=== PATIENT | female | born 1995 | race Caucasian/White ===

== ENCOUNTER 2021-03-17 11:39 | Emergency (ER) | payer BC, MEDICAID ==
[~2021-03-17] VITALS: Ht 160 cm; Wt 74.4 kg
[~2021-03-17 11:39] MED LIST: ALBU0.0939; ESCI5TAB; QUET25TA
[2021-03-17 11:42] VITALS: BP 157/80
--- NOTE | 2021-03-17 12:20 | NUR ---
26yo f, 31 weeks AOG, c/o right wrist pain s/p hitting lateral aspect on steering wheel yesterday. pain 5/10, dull, (+)tingling, (-)numbness. no meds taken. pt is still able to move her fingers/wrist at this time. cap refill <2 seconds. pmh: none meds: none allergy: amoxicillin
[2021-03-17] MEDS ORDERED: ACETAMINOPHEN EXTRA STRENGTH 500 MG TAB PO ONE (12:25)
--- NOTE | 2021-03-17 12:26 | NUR ---
HEALTH IT SPECIALIST AT PT BEDSIDE.
--- NOTE | 2021-03-17 12:27 | NUR ---
xray at patient bedside
[2021-03-17] MEDS ORDERED: ACET-10509 PO (12:53)
[2021-03-17 13:06] VITALS: BP 157/80
== END 2021-03-17 13:07 | disposition home or self-care (01) ==
LOC: MED 11:39
DX: O9A.213 Injury, poisoning and certain other consequences of external causes complicating pregnancy, third trimester (principal); S60.211A Contusion of right wrist, initial encounter; O99.513 Diseases of the respiratory system complicating pregnancy, third trimester; J45.909 Unspecified asthma, uncomplicated; Z3A.31 31 weeks gestation of pregnancy; Z79.899 Other long term (current) drug therapy; Z79.51 Long term (current) use of inhaled steroids; Z88.0 Allergy status to penicillin; X58.XXXA Exposure to other specified factors, initial encounter; Y92.89 Other specified places as the place of occurrence of the external cause; Y93.89 Activity, other specified; Y99.8 Other external cause status
CPT/HCPCS: 73110; 99283

== ENCOUNTER 2021-07-26 16:44 | Emergency (ER) | payer MEDICAID ==
[~2021-07-26] VITALS: Ht 160 cm; Wt 82.6 kg
[~2021-07-26 16:44] MED LIST changes: +ACET-10509 PO
[2021-07-26 16:57] VITALS: BP 158/83
[2021-07-26 18:54] LABS: BASOPHILS % (AUTO) 0.2 % (0.0-2.0); EOSINOPHILS % (AUTO) 0.3 % (0.0-4.0); HEMATOCRIT 41.3 % (36-48); HEMOGLOBIN 13.6 g/dL (12.0-16.0); LYMPHOCYTES # (AUTO) 0.5 K/uL (2.5-16.5); LYMPHOCYTES % (AUTO) 5.6 % (20.5-51.1); MEAN CORPUSCULAR HEMOGLOBIN 26 pg (27-31); MEAN CORPUSCULAR HGB CONC 33 g/dL (33-37); MEAN CORPUSCULAR VOLUME 77.5 fL (80-94); MONOCYTES # (AUTO) 0.4 K/uL (0.8-1.0); MONOCYTES % (AUTO) 5.1 % (1.7-9.3); NEUTROPHILS # (AUTO) 7.7 K/uL (1.8-7.7); NEUTROPHILS % (AUTO) 88.8 % (42.2-75.2); PLATELET COUNT (AUTO) 279 K/uL (140-450); RED BLOOD CELL COUNT(AUTO) 5.32 MIL/uL (4.20-5.40); RED CELL DISTRIBUTION WIDTH 21.2 % (11.6-13.7); WHITE BLOOD COUNT (AUTO) 8.7 K/uL (4.8-10.8)
[2021-07-26] MEDS: ONDANSETRON 4 MG ODT PO ONE (19:16)
[2021-07-26 19:17] LABS: ALBUMIN 3.7 g/dL (3.4-5.0); ANION GAP 15.9 (8-16); CARBON DIOXIDE 20.5 mmol/L (21-32); CREATININE 0.6 mg/dL (0.6-1.3); POTASSIUM 3.4 mmol/L (3.5-5.1); TOTAL BILIRUBIN 0.4 mg/dL (0.0-1.0)
[2021-07-26] MEDS: FAMOTIDINE 20 MG TAB PO ONE (19:17)
[2021-07-26] MEDS: DICYCLOMINE HCL LIQUID 10 MG/5 ML UDC PO ONE (19:17)
[2021-07-26] MEDS ORDERED: POTASSIUM CHLORIDE 10 MEQ TABER PO ONE (19:28)
[2021-07-26] MEDS: POTASSIUM CHLORIDE 10 MEQ TABER PO ONE (19:32)
[2021-07-26] MEDS ORDERED: ONDA-188 PO (19:44)
[2021-07-26] MEDS ORDERED: BEN10 PO (19:44)
[2021-07-26 21:00] VITALS: BP 116/73
== END 2021-07-26 21:00 | disposition home or self-care (01) ==
LOC: MED 16:44
DX: K52.9 Noninfective gastroenteritis and colitis, unspecified (principal); E87.6 Hypokalemia; R11.2 Nausea with vomiting, unspecified; R19.7 Diarrhea, unspecified; J45.909 Unspecified asthma, uncomplicated; Z88.1 Allergy status to other antibiotic agents; Z79.899 Other long term (current) drug therapy
CPT/HCPCS: 36415; 80053; 81002; 81025; 83690; 85025; 99284; Q0162